=== PATIENT | male | born 1985 | race Caucasian/White ===

== ENCOUNTER 2025-07-25 10:25 | Emergency (ER) | payer BC ==
[~2025-07-25] VITALS: Ht 167.6 cm; Wt 75.7 kg
[2025-07-25 10:25] VITALS: BP 129/80
[2025-07-25 10:52] LABS: PLATELET COUNT (AUTO) 117 K/uL (152-348); RED BLOOD CELL COUNT(AUTO) 4.90 MIL/uL (4.06-5.63); RED CELL DISTRIBUTION WIDTH 14.5 % (12.1-16.2); WHITE BLOOD COUNT (AUTO) 12.9 K/uL (3.6-10.2)
[2025-07-25 11:03] LABS: CREATININE 1.3 mg/dL (0.6-1.3); SODIUM SERUM 138 mmol/L (136-145); UREA NITROGEN, BLOOD 12 mg/dL (7-18)
[2025-07-25 11:09] LABS: ASPARTATE AMINOTRANSFERASE 15 U/L (15-37); TOTAL PROTEIN, SERUM 7.6 g/dL (6.4-8.2)
[2025-07-25] MEDS ORDERED: KETOROLAC TROMETHAMINE 15 MG INJ ONE (11:25)
[2025-07-25] MEDS ORDERED: DEXAMETHASONE SOD PHOSPHATE 10 MG INJ ONE (11:25)
[2025-07-25] MEDS ORDERED: ONDANSETRON 4 MG/2 ML VIAL ONE (11:25)
[2025-07-25] MEDS ORDERED: MORPHINE SULFATE 4 MG/1 ML DISP.SYRIN ONE (11:26)
[2025-07-25] MEDS: IV NORMAL SALINE 1000 ML BAG IV ONE (11:34)
[2025-07-25] MEDS: MORPHINE SULFATE 2 MG/1 ML DISP.SYRIN IV ONE (11:34)
[2025-07-25] MEDS: DEXAMETHASONE SOD PHOSPHATE 4 MG INJ IV ONE (11:34)
[2025-07-25] MEDS: KETOROLAC TROMETHAMINE 15 MG INJ IVP ONE (11:35)
[2025-07-25] MEDS: ONDANSETRON 4 MG/2 ML VIAL IV ONE (11:35)
[2025-07-25 12:27] VITALS: BP 123/75; O2SAT 98
== END 2025-07-25 12:28 | disposition home or self-care (01) ==
LOC: ER 10:25
DX: B34.9 Viral infection, unspecified (principal); R07.9 Chest pain, unspecified; Z20.822 Contact with and (suspected) exposure to COVID-19
CPT/HCPCS: 99285; 96374; 96375; 71045; 96361; 87426; 87804 ×2; 80076; 80048; 83880; 85025; 84145; 85730; 87040 ×2; 84484; 36415; 93005; 83605; J1885; J1100; J2405; J2270; J7040; A4606; A4663